=== PATIENT | female | born 1975 | race Caucasian/White ===

== ENCOUNTER 2022-02-02 11:15 | Outpatient (REF) | payer BC, SELFPAY ==
--- NOTE | ~2022-02-02 | US_ITS ---
EXAMINATION: US RETROPERITONEAL LIMITED (RENAL ONLY) CLINICAL INFORMATION: Low back pain. COMPARISON: None TECHNIQUE: Grayscale and color imaging of the kidneys FINDINGS: RIGHT KIDNEY: 11.8 x 4.8 x 5.1 cm (SAG x AP x TRV). The kidney is normal in size, contour, and echogenicity. Renal cortical thickness is normal. There is moderate right hydronephrosis. The visualized right ureter is dilated. No focal parenchymal lesions. Limited imaging of the bladder demonstrate a 6 mm right distal ureteral or UVJ stone. LEFT KIDNEY: 10.7 x 5.4 x 5.2 cm (SAG x AP x TRV). The kidney is normal in size, contour, and echogenicity. Renal cortical thickness is normal. No calculi or focal parenchymal lesions. No hydronephrosis. There are gallstones. US/US renal BI IMPRESSION: Moderate right hydronephrosis and ureteral dilatation from a 6 mm right distal ureteral or UVJ stone. Normal left kidney. Gallstones.
== END 2022-02-02 11:16 | disposition home or self-care (01) ==
LOC: HO.HMGCX 11:15
PROVIDERS: Visit Provider Internal Medicine
DX: R31.9 Hematuria, unspecified (principal); M54.50 Low back pain, unspecified; Z87.442 Personal history of urinary calculi
CPT/HCPCS: 76775

== ENCOUNTER 2022-03-08 14:22 | Outpatient (REF) | payer BC, SELFPAY ==
--- NOTE | ~2022-03-08 | US_ITS ---
EXAMINATION: US ABDOMEN LIMITED CLINICAL INFORMATION: Calculus of gallbladder without cholecystitis without obstruction. COMPARISON: US retroperitoneal limited (renal only) 02/02/2022. TECHNIQUE: Real-time imaging of the right upper quadrant abdominal viscera. FINDINGS: PANCREAS: Normal. LIVER: The liver is normal in size. The liver contour is normal. The liver is diffusely echogenic. No focal hepatic lesion. There is no intrahepatic biliary duct dilatation seen. GALLBLADDER: There are multiple mobile echogenic gallstones. The gallbladder is physiologically distended. Gallbladder wall thickening measures 0.64 cm. There is no tenderness in the right upper quadrant. No evidence of pericholecystic fluid. COMMON BILE DUCT: Normal in caliber measuring 0.4 cm in diameter. RIGHT KIDNEY: Normal. No hydronephrosis. No renal calculi or focal parenchymal lesions. The kidney measures 11.6 cm in maximum dimension. FREE FLUID: None. US/US abdomen limited IMPRESSION: Cholelithiasis with mild gallbladder wall thickening without tenderness. Mild hepatic steatosis without focal lesion.
== END 2022-03-08 14:23 | disposition home or self-care (01) ==
LOC: HO.HMGCX 14:22
PROVIDERS: PCP Internal Medicine; Visit Provider Internal Medicine
DX: K80.20 Calculus of gallbladder without cholecystitis without obstruction (principal)
CPT/HCPCS: 76705

== ENCOUNTER → 2022-03-31 13:34 | Outpatient (BNVA) | payer BC, SELFPAY | PROVIDERS: PCP Internal Medicine; Referring Provider Internal Medicine; Visit Provider Surgery | DX: Z13.89 Encounter for screening for other disorder (principal) ==

== ENCOUNTER 2022-04-20 06:01 | Day surgery (SDC) | payer BC, SELFPAY ==
[2022-04-14 14:33] VITALS: BMI 25.3
--- NOTE | 2022-04-19 09:33 | P.CONAN_ITS ---
Documented by User: Thelma Flores NP 04/19/22 09:34 HPI - Anesthesia Eval Consult details Narrative: 46yo F for Cholecystectomy Laparoscopic,poss open PMFSH Active Problems Active Problems: All Active Problems (Updated 03/31/22 @ 14:20 by Pabliot Allison MD) Biliary colic (Acute) Gallstones (Acute) Hx of migraine with aura (Acute) Hx of renal calculi (Acute) Past Medical History Medical History Gallstones Hx of migraine with aura Hx of renal calculi Family History Family History Mother Breast cancer, Onset Age: 65 Maternal Grandmother Diabetes mellitus Surgical History Surgical History No pertinent past surgical history Social History Social History Alcohol intake: current Alcohol intake frequency: a few times a month Alcohol type: wine Patient Tobacco Use Status: Never used Tobacco Use of substances other than those prescribed or required for medical reasons: No Are you DNR?: No Advance Directives: No Advance Directives Information Provided: Yes Meds Allergies Allergy/AdvReac Type Severity Reaction Status Date / Time No Known Allergies Allergy Unverified 03/31/22 13:44 Home Medications Medication Instructions Recorded Confirmed Last Taken Type levonorgestrel 20.1 mcg/24 hrs (6 INTRAUTERINE 02/02/22 03/31/22 Unknown History yrs) 52 mg intrauterine device (Liletta) Exam Exam Date and Time: April 19, 2022 0933 Height,Weight and Vital Signs: Height 5 ft 4.5 in Weight 68.039 kg Assessment and Plan Assessment Anesthesia Assessment: Chart Reviewed Documented by User: Rachele Horowitz MD 04/20/22 08:06 [facility] Past Medical History Medical History Gallstones Hx of migraine with aura Hx of renal calculi Family History Family History Mother Breast cancer, Onset Age: 65 Maternal Grandmother Diabetes mellitus Surgical History Surgical History No pertinent past surgical history History of Problems with Anesthesia: No Social History Social History Alcohol intake: current Alcohol intake frequency: a few times a month Alcohol type: wine Patient Tobacco Use Status: Never used Tobacco Use of substances other than those prescribed or required for medical reasons: No Are you DNR?: No Advance Directives: No Advance Directives Information Provided: Yes Meds Allergies Allergy/AdvReac Type Severity Reaction Status Date / Time No Known Allergies Allergy Unverified 03/31/22 13:44 Home Medications Medication Instructions Recorded Confirmed Last Taken Type levonorgestrel 20.1 mcg/24 hrs (6 INTRAUTERINE 02/02/22 03/31/22 Unknown History yrs) 52 mg intrauterine device (Liletta) Exam Airway Mallampati Class: II TM Dist: >3cm Neck ROM: Full Loose/Missing/Broken Teeth: No Heart: RRR Lungs: CTA Assessment and Plan Assessment Anesthesia Assessment: Anesthesia Plan Discussed Final Anesthetic Review History of Problems with Anesthesia: No NPO: Yes ASA Class: I Final Preanesthetic Review: Meds/Allgs Chart Reviewed, Consent Obtained/Reviewed and Anes Risks/Benef Reviewed Patient Risk: Low Procedure Risk: Intermediate Anesthetic Plan Anesthetic Plan: GA Disposition: Standard PACU
[2022-04-20] VITALS (9 sets, daily range): BP systolic 101–125; BP diastolic 55–72; PULSE 54–80; RESP 15–20; TEMP 36.1–36.9; O2SAT 98–100
[2022-04-20] MEDS: Acetaminophen 325 MG TABLET 650 MG PO (06:21)
[2022-04-20] MEDS: Lactated Ringers 1,000 ML 100 ML IVCONT (06:33)
[2022-04-20 06:34] LABS: UPreg QC Valid YES; Urine Pregnancy NEGATIVE (NEGATIVE)
--- NOTE | 2022-04-20 07:35 | MHC.SHP ---
Pre-Procedural Eval Section A Date of Service: 04/20/22 The patient is an INPATIENT: No Changes since office visit: Yes Patient answered all questions; No Cold of Flu in the past 2 weeks, No New Medical Problems and No Changes in Medication The History & Physical has been completed within 30 days and I have reviewed it.: Yes Section B Chief Complaint: calculus of bile duct and gallbladder Allergies: Allergies Allergy/AdvReac Type Severity Reaction Status Date / Time No Known Allergies Allergy Unverified 03/31/22 13:44 Plan Diagnosis/Plan: Unchanged I have reviewed the history and physical and performed a pertinent physical examination on my patient. No changes have occurred unless specified.
--- NOTE | 2022-04-20 08:44 | W.PM.OPN ---
Operative Note Operative Note Date of Service: 04/20/22 Narrative: Preoperative diagnosis: Biliary colic, gallstones Postoperative diagnosis: Same Procedure: Laparoscopic cholecystectomy Surgeon: Pablito Allison MD Meter/Relay Craftsman: no physician Anesthesia: General endotracheal Indications for procedure: 46-year-old female patient presenting with intermittent episodes of abdominal pain in the right upper quadrant. Workup revealed gallstones within the gallbladder. Patient presents today for laparoscopic cholecystectomy. Operative findings: Evidence of prior episodes of acute cholecystitis with adhesions to the gallbladder. A single large gallstone noted at the base of the gallbladder. Specimen: gallbladder Estimated blood loss: Less than 1 mL Complications: None Procedure details: Patient was brought to the OR and placed in a supine position. After administering general anesthesia the patient's abdomen was prepped with ChloraPrep and draped in a sterile fashion. Local anesthesia consisting of 0.25% Sensorcaine without epinephrine was infiltrated in a periumbilical region. A 5 mm incision was made above the umbilicus in a transverse fashion. The Veress needle was then inserted while elevating abdominal cavity with towel clips. After positive drop test the abdomen was insufflated to a pressure of 15 mm of mercury. The Veress needle was then removed and a 5 mm trocar inserted. The camera was inserted in the abdomen explored. A 12 mm trocar was then placed in the epigastrium. Two 5 mm trocars placed in the right upper quadrant by the cashier assistant. The patient was placed in reverse Trendelenburg positioning and rotated to the left. The gallbladder was grasped with the fundus and retracted cephalad by the cashier assistant. The infundibulum was then grasped and retracted away from the liver bed, also by the cashier assistant. The Dolphin dissected was then used by the surgeon to dissect the peritoneum off the infundibulum to reveal the junction with the cystic duct. Cystic artery was noted slightly medial and posterior to the cystic duct. After obtaining a critical view the cystic duct was doubly clipped and divided. The cystic artery was then doubly clipped and divided. The gallbladder was then dissected off the liver bed using electrocautery with an L hook. Hemostasis was assured all times using the electrocautery. When the gallbladder is completely dissected off the liver bed was placed in an Endo-Catch bag and brought out through the epigastric incision. The gallbladder was sent to pathology for further examination. The abdomen was then re-examined. The liver bed was irrigated and suctioned dry. No bleeding or bile leak could be identified. CO2 was then evacuated and all trocars removed. Fascia was closed at the epigastric incision using a [id number] 0 Polysorb suture. Skin was closed in all incisions using a subcuticular 4 0 Polysorb suture by both the surgeon and cashier assistant. Sterile dressings consisting of Steri-Strips, 2 x 2 gauze, and Tegaderm were then applied. The patient tolerated the procedure well. Sponge instrument and needle counts reported as correct. The patient was transferred to PACU in stable condition.
[2022-04-20] MEDS: ondansetron HCL 4 MG/2 ML VIAL IVPUSH (08:54)
[2022-04-20] MEDS: fentaNYL citrate/PF 100 MCG/2 ML VIAL 50 MCG IVPUSH (08:56)
[2022-04-20] MEDS: oxyCODONE HCl Immed Release 5 MG TABLET PO (09:33)
== END 2022-04-20 10:24 | disposition home or self-care (01) ==
PROVIDERS: Nurse Practitioner; PCP Internal Medicine; Visit Provider Surgery
PROC: 0FT44ZZ Resection of Gallbladder, Percutaneous Endoscopic Approach (ICD-10-PCS; CPT 47562; principal; 2022-04-20 07:30)
DX: K80.10 Calculus of gallbladder with chronic cholecystitis without obstruction (principal); K82.8 Other specified diseases of gallbladder; Z87.442 Personal history of urinary calculi
CPT/HCPCS: 47562; 81025; 88304; J1100; J2250; J2405; J3010

== ENCOUNTER → 2022-04-28 10:06 | Outpatient (BNVA) | payer BC, SELFPAY | PROVIDERS: PCP Internal Medicine; Referring Provider Internal Medicine; Visit Provider Surgery | DX: Z13.89 Encounter for screening for other disorder (principal) ==

== ENCOUNTER 2023-04-11 07:00 | Outpatient (REF) | payer BC, SELFPAY ==
[2023-04-11 11:12] LABS: MANUAL DIFF FLAG NO
[2023-04-11 11:33] LABS: Basophils Absolute Auto 0.1 X10*3/uL (0.0-0.2); Basophils Percent Auto 0.8 % (0-2); Eosinophils Absolute Auto 0.2 X10*3/uL (0.0-0.4); Eosinophils Percent Auto 2.8 % (0-4); Hematocrit 41.8 % (37.0-47.0); Hemoglobin 13.8 g/dl (12.0-16.0); Imm Gran Abs Auto 0.01 X10*3/uL (0.00-0.03); Imm Gran Pct Auto 0.2 % (0.0-0.4); Lymphocytes Absolute Auto 2.2 X10*3/uL (1.2-4.9); Lymphocytes Percent Auto 36.7 % (20-40); Mean Corpuscular Hemoglobin 29.7 pg (27.0-33.0); Mean Corpuscular Volume 89.9 fL (80.0-98.0); Mean Platelet Volume 9.9 fL (9.4-12.3); Monocytes Absolute Auto 0.5 X10*3/uL (0.1-1.2); Monocytes Percent Auto 7.9 % (2-11); Neutrophils Absolute Auto 3.1 x10*3/uL (2.0-8.3); Neutrophils Percent Auto 51.6 % (45-73); Platelet Count 274 X10*3/uL (160-400); Red Blood Count 4.65 X10*6/uL (4.20-5.50); Red Cell Distribution Width 12.8 % (11.0-16.0); White Blood Count 6.1 X10*3/uL (4.8-10.8)
[2023-04-11 12:11] LABS: Alanine Aminotransferase 18 U/L (0-31); Anion Gap 9 (12-20); Aspartate Amino Transferase 16 U/L (5-31); Blood Urea Nitrogen 12 mg/dL (9-16); Calcium 9.2 mg/dL (8.4-10.2); Carbon Dioxide 25 mmol/L (22-29); Chloride 108 mmol/L (96-108); Cholesterol 205 mg/dL; Estimated Glomerular Filt Rate > 60; Glucose Fasting 100 mg/dL (60-99); HDL Cholesterol 55 mg/dL; LDL Cholesterol Calculated 132 mg/dl; Sodium 138 mmol/L (135-145); Triglycerides 91 mg/dL
[2023-04-11 12:21] LABS: Folate 11.8 ng/mL (> or = 4.0); TSH reflex Free T4 2.12 uIU/mL (0.32-4.0); Vitamin B12 369 pg/mL (200-900); Vitamin D 25-OH Total 17.8 ng/mL (>30)
== END 2023-04-11 07:01 | disposition home or self-care (01) ==
LOC: HO.HMGCLDS 07:00
PROVIDERS: PCP Internal Medicine; Visit Provider Internal Medicine
DX: Z00.01 Encounter for general adult medical examination with abnormal findings (principal); R53.83 Other fatigue
CPT/HCPCS: 36415; 80048; 80061; 82306; 82607; 82746; 84443; 84450; 84460; 85025

== ENCOUNTER 2024-04-11 14:00 | Outpatient (AMB) | payer BC, SELFPAY ==
--- NOTE | 2024-04-11 14:04 | MHC.PC.OV ---
Vital Signs 04/11/24 14:08 Height 5 ft 4 in Weight 186 lb BMI 31.9 BP 124/72 Blood Pressure Location Lt brachial Position Sitting Pulse 77 Pulse Source Pulse Oximeter Pulse Oximetry (%) 97 Oxygen Delivery Method Room Air Intake Visit Reasons: Annual PE Intake Note: Pt is here today for her PE: last mammogram 05/23/23, papsmear 05/13/22 and cologuard 11/28/23 Allergies No Known Allergies Allergy (Unverified 04/11/24 14:32) Medication List - Last Reconciled 04/11/24 by Mary Fragoso MD levonorgestrel (Liletta) intrauterine Tobacco use date assessed: 04/11/24 Dental Screening Dental Screen Date: 04/11/24 Did you have a dental visit in the last 12 months?: Yes Did you have a dental problem in the last 6 months where you did not have access to dental care?: No Was dental information given to patient?: Patient has dentist HPI Annual PE HPI Details 48-year-old lady here today for her physical exam. Has no significant past medical history, currently followed by OBGYN for her routine Pap and pelvic exam, and is also on Liletta for control, inserted in 2017. last mammogram was done on 05/23/23, and papsmear done on 05/13/22 done by Erin Capps NP . She had a negative cologuard 11/28/23. Up-to-date with her vaccines [facility] Medical History Hyperlipidemia Impaired fasting glucose Fatigue Gallstones Hx of migraine with aura Hx of renal calculi Surgical History S/P laparoscopic cholecystectomy (04/20/22) No pertinent past surgical history Family History Mother Breast cancer, Onset Age: 65 Maternal Grandmother Diabetes mellitus Social History Housing: House Alcohol intake: current Alcohol intake frequency: a few times a month Alcohol type: wine Patient Tobacco Use Status: Never used Tobacco e-Cigarette/Vaping Use: Never Used service: No Current occupational status: employed Cognitive needs: No Hearing needs: No Vision needs: Yes Female Reproductive History Menstrual control method: progestin IUCD Questionnaire PHQ-9 Over the last 2 weeks, how often have you been bothered by any of the following problems? 1. Little interest or pleasure in doing things: not at all 2. Feeling down, depressed, or hopeless: not at all 3. Trouble falling or staying asleep, or sleeping too much: not at all 4. Feeling tired or having little energy: not at all 5. Poor appetite or overeating: not at all 6. Feeling bad about yourself - or that you are a failure or have let yourself or your family down: not at all 7. Trouble concentrating on things, such as reading the newspaper or watching television: not at all 8. Moving or speaking so slowly that other people could have noticed. Or the opposite - being so fidgety or restless that you have been moving around a lot more than usual: not at all 9. Thoughts that you would be better off or of hurting yourself in some way: not at all Total score: 0 Depression Screening Interpretation: Negative Depression Screening Done: Yes 37148 - PHQ-9 Billing: Yes Source: Developed by Drs. Manpreet Pickard, Pippa Salinas, Arnold Man and colleagues, with an educational rm from [employer]. Thrive Questionnaire Date Thrive assessed: 04/11/24 I am a: Patient What is your living situation today?: I have a steady place to live Within the past 12 months, did the food you bought not last and you didn't have the money to get more?: Never true Within the past 12 months, did you worry whether your food would run out before you got money to buy more?: Never true Do you have trouble paying for medicines?: No Do you have trouble getting transportation to medical appointments?: No Do you have trouble paying your heating and electricity bill?: No Do you have trouble taking care of your child, family member or friend?: No Do you have trouble with day-to-day activities such as bathing, preparing meals, shopping, managing finances, etc.?: No Are you currently unemployed and looking for a job?: No Are you interested in more education?: No THRIVE Score: 0 AUDIT C Alcohol Use Questionnaire (AUDIT-C) 1. How often do you have a drink containing alcohol?: Monthly or less 2. How many drinks containing alcohol do you have on a typical day when you are drinking?: 1 or 2 3. How often do you have six or more drinks on one occasion?: Never Total Score: 1 DIONY-7 AMB Questionnaire DIONY-7 Date DIONY - 7 assessed: 04/11/24 Feeling nervous, anxious, or on edge: 0 = Not at all Not being able to stop or control worryin = Not at all Worrying too much about different things: 0 = Not at all Trouble relaxin = Not at all Being so restless that it is hard to sit still: 0 = Not at all Becoming easily annoyed or irritable: 0 = Not at all Feeling afraid as if something awful might happen: 0 = Not at all Total DIONY-7 score (0-4 normal; 5-9 mild; 10-14 moderate; 15-21 severe): 0 Source: Developed by Drs. Manpreet Pickard, Pippa Salinas, Arnold Man and colleagues, with an educational rm from [employer]. DIONY-7 Assessment Billing DIONY-7 Assessment Tool: DIONY-7 Assessment 72704 Review of Systems Const Denies chills, Denies fever(s), Denies headache(s) and Denies poor appetite Eyes Details: Goes to vision works in [place] Denies change in vision ENT Denies dizziness and Denies headache(s) Card Denies chest pain, Denies rapid heart rate, Denies palpitations and Denies slow heart rate Resp Denies chest congestion, Denies cough, Denies pain on inspiration and Denies wheezing GI Denies bloating, Denies change in stool character, Denies constipation, Denies diarrhea, Denies vomiting and Denies hematemesis Reports no additional complaints Musc Denies back pain, Denies arthralgias, Denies joint swelling and Denies numbness Skin/Breast Denies change in pigmentation, Denies erythema and Denies rash Neuro Denies dizziness, Denies headache(s) and Denies numbness Psych Denies anxiety and Denies depression Endo Denies palpitations Anthony/Lymph Denies easy bleeding, Denies easy bruising and Denies lymphadenopathy Aller/Immun Denies wheezing Physical exam (Primary Care) Vital Signs: Last Vital Signs Pulse 77 04/11/24 14:08 BP 124/72 04/11/24 14:08 Pulse Ox 97 04/11/24 14:08 Oxygen Delivery Method Room Air 04/11/24 14:08 BMI result Body Mass Index 31.9 Tobacco/Smoking Status: Tobacco use Status Tobacco use date assessed 04/11/24 04/11/24 14:07 Patient Tobacco Use Status Never used Tobacco 04/11/24 14:07 e-Cigarette/Vaping Use Never Used 04/11/24 14:07 PHQ-9: PHQ-9 Score PHQ-9: Total score 0 04/11/24 14:11 Depression Screening Interpretation: Negative Thrive Assessment: Date of Thrive Assessment Date Thrive assessed 04/11/24 04/11/24 14:11 Advance Care Planning discussion: Completed/Scanned Date of discussion: 04/11/24 Who was present: Patient Forms completed: Health Care Proxy Time spent: 16-45 minutes Actual minutes spent: 16 Const General: comfortable, no acute distress and alert Orientation/consciousness: patient oriented x3 HENMT Head: Yes normocephalic Ears: external ears normal, TM's normal bilaterally and EAC's normal General nose exam: Normal external nose present Face and sinus: Yes face symmetric Mouth: Normal oral and palatal mucosa present, oropharynx normal and moist mucous membranes Eyes General: appearance normal, both eyes and all related structures Neck Neck: Yes full ROM, Yes no lymphadenopathy and Yes supple Chest Chest palpation & inspection: normal inspection of the chest Breast/axilla palpation: normal palpation of the breasts Resp Auscultation: clear to auscultation bilaterally Cardio Other: S1, S2 present regular rate and rhythm GI Inspection: Yes normal to inspection Palpation (GI): Soft to palpation and no masses General: Yes no CVA tenderness Back/Spine/Pelvis Back: no CVA tenderness Skin General skin exam: no rashes or lesions noted Neuro General: patient oriented x3, gait normal, tone normal, moves all extremities and no focal motor deficits Cognition (Neuro): normal cognition Extrem General: Yes full ROM, Yes no joint enlargement, Yes no clubbing, cyanosis or edema, Yes no calf tenderness and Yes normal gait Psych Appearance: grossly normal and well kempt Mental Status: mental status grossly normal Speech and movement: Normal speech and movement present Affect: normal affect Attitude: cooperative Thought process: Normal thought process present Thought content: Normal thought content present Assessment and Plan Assessment & Plan (1) Annual visit for general adult medical examination with abnormal findings: Code(s): Z00.01 - Encounter for general adult medical examination with abnormal findings Plan: Will check appropriate labs. Continue regular dental visit every 6 months and regular eye exams, at least every 2 years, goes to [employer] in [place]. Take adequate calcium in diet and vitamin-D 3 at 2000 IU per cap once a day, in addition to weight-bearing exercises to help maintain good muscle tone and weight control. Instructed to do self-breast exam, and continue with yearly mammogram, goes to [facility] for her routine Pap and pelvic exam, currently up-to-date. Up-to-date with all her vaccinations, and her colon cancer screening, had a negative Cologuard testing done on 11/19 (2) Fatigue: Code(s): R53.83 - Other fatigue Qualifiers: Fatigue type: unspecified Qualified Code(s): R53.83 - Other fatigue Plan: Will check vitamin-D level (3) Hyperlipidemia: Code(s): E78.5 - Hyperlipidemia, unspecified Qualifiers: Hyperlipidemia type: pure hypercholesterolemia Qualified Code(s): E78.00 - Pure hypercholesterolemia, unspecified Plan: Will check fasting lipid panel, reinforced importance of following her low-cholesterol diet and getting regular exercise (4) Impaired fasting glucose: Code(s): R73.01 - Impaired fasting glucose Plan: Your fasting blood sugar last year was elevated. Impaired glucose metabolism increases your risk for developing diabetes mellitus type 2, as well as heart attack and stroke later on. Lifestyle changes at just weight loss, healthy eating habits, and regular exercise are important, and can prevent the progression to diabetes Orders: Orders Alanine Aminotransferase Today E78.5 - Hyperlipidemia, unspecified, R53.83 - Other fatigue, R73.01 - Impaired fasting glucose, Z00.01 - Encounter for general adult medical examination with abnormal findings Vitamin D 25-OH Total Today E78.5 - Hyperlipidemia, unspecified, R53.83 - Other fatigue, R73.01 - Impaired fasting glucose, Z00.01 - Encounter for general adult medical examination with abnormal findings Lipid Panel Today E78.5 - Hyperlipidemia, unspecified, R53.83 - Other fatigue, R73.01 - Impaired fasting glucose, Z00.01 - Encounter for general adult medical examination with abnormal findings Basic Metabolic Panel Fasting Today E78.5 - Hyperlipidemia, unspecified, R53.83 - Other fatigue, R73.01 - Impaired fasting glucose, Z00.01 - Encounter for general adult medical examination with abnormal findings Aspartate Amino Transferase Today E78.5 - Hyperlipidemia, unspecified, R53.83 - Other fatigue, R73.01 - Impaired fasting glucose, Z00.01 - Encounter for general adult medical examination with abnormal findings Coding Level of Care Code Est Pt Prev Care 40-64y(95023) Diagnoses Annual visit for general adult medical examination with abnormal findings Z00.01 Fatigue, unspecified type R53.83 Fatigue type: unspecified Pure hypercholesterolemia E78.00 Hyperlipidemia type: pure hypercholesterolemia Impaired fasting glucose R73.01 Additional Codes DIONY-7 Assessment Billing - DIONY-7 Assessment Tool: DIONY-7 Assessment 58397 ([id number]) Vital Signs *Quality* - Advance Care Planning discussion: Completed/Scanned ([id number]) Vital Signs *Quality* - Time spent: 16-45 minutes ([id number])
[2024-04-11 14:08] VITALS: BP 124/72; PULSE 77; O2SAT 97; BMI 31.9
== END 2024-04-11 15:00 | disposition home or self-care (01) ==
PROVIDERS: Visit Provider Internal Medicine
DX: Z00.00 Encounter for general adult medical examination without abnormal findings (principal); R53.83 Other fatigue; E78.00 Pure hypercholesterolemia, unspecified; R73.01 Impaired fasting glucose
CPT/HCPCS: 1123F; 99396; 99497

== ENCOUNTER 2024-08-19 07:15 | Outpatient (REF) | payer BC, SELFPAY ==
[2024-08-19 10:53] LABS: Alanine Aminotransferase 30 U/L (0-31); Anion Gap 12 (12-20); Aspartate Amino Transferase 23 U/L (5-31); Blood Urea Nitrogen 11 mg/dL (9-16); Calcium 9.4 mg/dL (8.4-10.2); Carbon Dioxide 23 mmol/L (22-29); Chloride 108 mmol/L (96-108); Cholesterol 177 mg/dL (<200); Estimated Glomerular Filt Rate > 60; Glucose Fasting 95 mg/dL (60-99); HDL Cholesterol 48 mg/dL (>40); LDL Cholesterol Calculated 106 mg/dL (<100); Potassium 3.8 mmol/L (3.3-5.1); Sodium 139 mmol/L (135-145); Triglycerides 119 mg/dL (<150)
[2024-08-19 11:12] LABS: Vitamin D 25-OH Total 31.6 ng/mL (>30)
== END 2024-08-19 07:16 | disposition home or self-care (01) ==
LOC: HO.HMGCLDS 07:15
PROVIDERS: PCP Internal Medicine; Visit Provider Internal Medicine
DX: Z00.01 Encounter for general adult medical examination with abnormal findings (principal); R73.01 Impaired fasting glucose; E78.5 Hyperlipidemia, unspecified; R53.83 Other fatigue
CPT/HCPCS: 36415; 80048; 80061; 82306; 84450; 84460

== ENCOUNTER 2024-11-11 15:20 | Outpatient (AMB) | payer BC, SELFPAY ==
--- NOTE | 2024-11-11 15:26 | AM.OFFWIN_ITS ---
Intake Vital Signs 11/11/24 15:28 Height 5 ft 4 in Weight 187 lb BMI 32.1 BP 130/88 Blood Pressure Location Lt brachial Position Sitting Pulse 84 Pulse Source Pulse Oximeter Temp 97.0 F Temp Source Temporal Artery Scan Pulse Oximetry (%) 99 Oxygen Delivery Method Room Air Intake Visit Reasons: EP pain on RT shoulder for several weeks Intake Note: Pt presents to the office today for c/o right shoulder pain that radiates down her arm x1 month on and off. Pt states today she experienced numbness and tingling in her left hand. Pt denies any injury to her shoulder. Patient Tobacco Use Status: Never used Tobacco Allergies No Known Allergies Allergy (Unverified 11/11/24 15:29) HPI EP pain on RT shoulder for several weeks HPI Details This note is constructed using voice recognition software. While every effort has been made to ensure accuracy, police booking officer errors may have been included. The patient is a 49 year old female who presents to the clinic today with intermittent right shoulder pain for the past several weeks. She denies any specific injury to this now or in the past. Does note that the pain feels rather sharp in nature, intermittent, worse when she is sitting. She has had some intermittent numbness and tingling into her fingers as a result of this. She tried ibuprofen this morning, did not seem to help, only took 200 mg. She took a 2nd 200 mg dose and that seemed to help alleviate the pain for several hours, but it did return. [facility] Medical History Hyperlipidemia Impaired fasting glucose Fatigue Gallstones Hx of migraine with aura Hx of renal calculi Surgical History S/P laparoscopic cholecystectomy (04/20/22) No pertinent past surgical history Family History Mother Breast cancer, Onset Age: 65 Maternal Grandmother Diabetes mellitus Social History Housing: House Alcohol intake: current Alcohol intake frequency: a few times a month Alcohol type: wine Patient Tobacco Use Status: Never used Tobacco e-Cigarette/Vaping Use: Never Used service: No Current occupational status: employed Cognitive needs: No Hearing needs: No Vision needs: Yes Review of Systems Const All systems reviewed & are unremarkable except as noted in HPI and below Physical Exam Vital Signs: Last Vital Signs Temp 97.0 F 11/11/24 15:28 Pulse 84 11/11/24 15:28 BP 130/88 11/11/24 15:28 Pulse Ox 99 11/11/24 15:28 Oxygen Delivery Method Room Air 11/11/24 15:28 BMI result Body Mass Index 32.1 Const General: cooperative, healthy appearing, comfortable, no acute distress and well developed Orientation/consciousness: patient oriented x3 Limitations: no limitations Resp Effort & Inspection: normal respiratory effort and able to speak in complete sentences Back/Spine/Pelvis Other: Right paraspinal muscle bulking, with palpable not. Full range of motion of shoulder, elbow, neck. No erythema, ecchymosis, edema. Skin General skin exam: no rashes or lesions noted Neuro General: patient oriented x3 Extrem General: Yes normal to inspection Assessment & Plan Assessment & Plan (1) Muscle spasm: Code(s): M62.838 - Other muscle spasm Plan: Advised use of NSAIDs, heat/ice, topical muscle rubs, and muscle relaxers prescribed to patient at time of visit. HEP provided. Consider physical therapy want to ongoing or worsening symptoms. Advised patient to follow up with PCP as needed. Plan See above for full details and plan. Medications: New cyclobenzaprine 1 to 2 orally 3 times a day PRN; 10 tabs 0RF muscle spasm Coding Level of Care Code Est Pt Level 3 (37191) Diagnoses Muscle spasm M62.838
[2024-11-11 15:28] VITALS: BP 130/88; PULSE 84; TEMP 36.1; O2SAT 99; BMI 32.1
== END 2024-11-11 15:43 | disposition home or self-care (01) ==
PROVIDERS: PCP Internal Medicine; Visit Provider Registered Nurse
DX: M62.838 Other muscle spasm (principal)

== ENCOUNTER → 2024-11-11 15:20 | Outpatient (BNVA) | payer BC, SELFPAY | PROVIDERS: PCP Internal Medicine; Visit Provider Registered Nurse ==

== ENCOUNTER 2024-11-13 18:03 | Emergency (ER) | payer BC, SELFPAY ==
--- NOTE | ~2024-11-13 | XR_ITS ---
EXAMINATION: XR CHEST CLINICAL INFORMATION: pain COMPARISON: None available. TECHNIQUE: 2 views of the chest were obtained. FINDINGS: No significant abnormality is noted involving the heart, lungs, mediastinum, bony thorax or soft tissues. XR/XR chest 2V IMPRESSION: Unremarkable examination. Electronically signed by: Cy Cheung DO 11/13/2024 09:20 PM [facility] [place]
--- NOTE | ~2024-11-13 | MR_ITS ---
EXAMINATION: MR CERVICAL SPINE WITHOUT CONTRAST CLINICAL INFORMATION: Radiculopathy, weakness COMPARISON: None available. TECHNIQUE: MRI of the cervical spine was obtained using routine sequences without contrast. FINDINGS: Motion artifact is present. The imaged posterior fossa is unremarkable. Straightening of the normal cervical arthrosis. No listhesis. No acute bone marrow abnormality. The vertebral body heights are preserved. Multilevel disc desiccation with severe disc height loss at C5-6. Type II endplate changes at C5-6. The visualized spinal cord is normal in caliber. No abnormal cord signal. C2-3: No significant spinal canal or neural foraminal narrowing. C3-4: Mild endplate spurring. No significant spinal canal or neural foraminal narrowing. C4-5: Mild endplate spurring. No significant spinal canal or neural foraminal narrowing. C5-6: Disc osteophyte complex and bilateral uncovertebral hypertrophy. Moderate left greater than right neural foraminal narrowing. No significant spinal canal stenosis. C6-7: Disc osteophyte complex with superimposed right foraminal disc extrusion migrating slightly inferiorly. No significant spinal canal stenosis. Severe right neural foraminal narrowing. C7-T1: No significant spinal canal or neural foraminal narrowing. The paravertebral soft tissues are unremarkable. The imaged lung apices are clear. MR/MR cervical spine wo con IMPRESSION: Within the limitations of the study, -Multilevel cervical spondylosis without significant spinal canal narrowing. At C6-C7, there is a right foraminal disc extrusion resulting in severe right neural foraminal narrowing. At C5-C6, there is moderate left greater than right neural foraminal narrowing. Electronically signed by: Cresencio Novak MD 11/13/2024 09:08 PM [facility]
--- NOTE | ~2024-11-13 | XR_ITS ---
EXAMINATION: XR THORACIC SPINE CLINICAL INFORMATION: pain COMPARISON: None available. TECHNIQUE: 3 views of the thoracic spine were obtained. FINDINGS: There is no fracture or bone destruction seen and the vertebral alignment is normal. There is no disc space narrowing. There is no abnormality of the paraspinal soft tissues. XR/XR thoracic spine 2V IMPRESSION: Unremarkable examination. Electronically signed by: Cy Cheung DO 11/13/2024 09:20 PM [facility]
[2024-11-13 18:07] VITALS: BP 149/85; PULSE 72; RESP 16; TEMP 37; O2SAT 98; BMI 31.8
--- NOTE | 2024-11-13 18:10 | ECG_ITS ---
Test Reason : BACK PAIN Blood Pressure : / mmHG Vent. Rate : 072 BPM Atrial Rate : 072 BPM P-R Int : 160 ms QRS Dur : 080 ms QT Int : 404 ms P-R-T Axes : 007 041 009 degrees QTc Int : 442 ms Normal sinus rhythm Normal ECG No previous ECGs available Referred By: Gabino Momin Electronically Signed By:TONO JONES
--- NOTE | 2024-11-13 18:10 | ED_ITS ---
HPI - General Adult General Chief complaint: General Medical Stated complaint: rt shoulder pain/was in UC pain won't go away Time Seen by Provider: 11/13/24 19:53 Source: patient Limitations: no limitations History of Present Illness ED Provider: Analisa Thomas PA-C HPI narrative: 49-year-old female with a history of hyperlipidemia, migraine, kidney stones, presents with upper back and neck discomfort that has been going on for a month. Patient's symptoms are progressing, she is now having radiation of pain into the right upper extremity. Associated paresthesia and subtle weakness of the right upper extremity. Patient is having decreased rehabilitation case coordinator strength. Related Data Home Medications ?Medication ?Instructions ?Recorded ?Confirmed levonorgestrel 20.4 mcg/24 hr (up intrauterine 02/02/22 11/15/24 to 8 yrs) 52 mg intrauterine device (Liletta) Previous Rx's ?Medication ?Instructions ?Recorded meloxicam 15 mg tablet 15 mg PO DAILY PRN pain, moderate 11/15/24 #30 tabs methocarbamol 750 mg tablet 1,500 mg (2 x 750 mg) PO Q8H PRN 11/15/24 pain, moderate #40 tabs tramadol 50 mg tablet 50 mg PO BID PRN pain, moderate 11/18/24 #20 tabs Allergies Allergy/AdvReac Type Severity Reaction Status Date / Time No Known Allergies Allergy Verified 11/15/24 09:18 Review of Systems 2 Review of Systems: Yes all other systems are reviewed and are negative Constitutional: Constitutional: Denies fatigue and Denies fever(s) ENT: Reports neck pain Cardiovascular: Cardiovascular: Denies chest pain and Denies dyspnea Respiratory: Respiratory: Denies dyspnea Musculoskeletal: Musculoskeletal: Reports muscle weakness, Reports neck pain, Denies numbness, Reports radiating pain into limb and Reports tingling Neurologic: Denies numbness and Reports tingling Endocrine: Endocrine: Denies fatigue PMFSH Past Medical History Attestation statement: The following information was validated with the patient. Medical History (Updated 11/15/24 @ 10:36 by Mary Fragoso MD) Cervical disc disorder at C6-C7 level with radiculopathy Hyperlipidemia Impaired fasting glucose Gallstones Hx of migraine with aura Hx of renal calculi Surgical History (Updated 11/15/24 @ 10:36 by Mary Fragoso MD) S/P laparoscopic cholecystectomy (04/20/22) Family History Family History Mother Breast cancer, Onset Age: 65 Maternal Grandmother Diabetes mellitus Social History Social History Housing: House Alcohol intake: current Alcohol intake frequency: a few times a month Alcohol type: wine Patient Tobacco Use Status: Never used Tobacco e-Cigarette/Vaping Use: Never Used Advance Directives Date on File: 04/11/24 service: No Current occupational status: employed Cognitive needs: No Hearing needs: No Vision needs: Yes Physical Exam ED Vital Signs: Vital Signs - 24 hr 11/13/24 18:07 11/13/24 21:19 Temperature 98.6 F 98.3 F Pulse Rate 72 60 Respiratory Rate 16 18 Blood Pressure 149/85 H 132/90 H Pulse Oximetry 98 98 Oxygen Delivery Method Room Air Room Air BMI result Body Mass Index 31.8 Const Other: Alert, appears uncomfortable Orientation/consciousness: patient oriented x3 Neck Other: Full range of motion, pain elicited with range of motion Resp Effort & Inspection: normal respiratory effort Cardio Other: Normal peripheral perfusion Skin Other: Warm dry no rash Neuro General: patient oriented x3, no focal motor deficits and CN's II-XI intact bilaterally Extrem Other: Overall strength 5/5 bilateral upper extremities with resistance, however subtly reduced rehabilitation case coordinator strength of the right hand Psych Other: Calm cough Course Course Course Narrative: RME, this is a rapid medical exam performed by Mega Momin please refer to primary provider for complete H&P- 49-year-old female presents for evaluation of right upper back pain. She has had mild pain on and off for a month, 2 days ago her pain worsened and she was seen at urgent care, prescribed muscle relaxers without any improvement in her symptoms. She reports occasional tingling in the right arm. Denies any nausea, vomiting, chest pain. Plan for cardiac workup. The patient is tender on exam in the right thoracic paraspinous region Medications Administered Discontinued Medications Generic Name Dose Route Start Last Admin Trade Name Freq PRN Reason Stop Dose Admin Dexamethasone Sodium Phosphate 10 mg 11/13/24 21:42 11/13/24 21:49 Dexamethasone Sod Phosphate 10 Mg/Ml Vial IVPUSH 11/13/24 21:43 10 mg ONCE ONE Administration Diazepam 5 mg 11/13/24 20:19 11/13/24 20:34 Diazepam 10 Mg/2 Ml Cartridge IVPUSH 11/13/24 20:20 5 mg STAT STA Administration Ketorolac Tromethamine 15 mg 11/13/24 20:19 11/13/24 20:34 Ketorolac Tromethamine 15 Mg/Ml Vial IVPUSH 11/13/24 20:20 15 mg ONCE ONE Administration Medical Decision Making Medical Decision Making MDM Narrative: 49-year-old female with a history of hyperlipidemia, migraine, kidney stones, presents with upper back and neck discomfort that has been going on for a month. Patient's symptoms are progressing, she is now having radiation of pain into the right upper extremity. Associated paresthesia and subtle weakness of the right upper extremity. Patient is having decreased rehabilitation case coordinator strength. No relevant chronic issues History: Per patient I have considered the following differential diagnoses: Cervical radiculopathy, cord compression , cervical spine fracture Plan: Patient having worsening radicular symptoms now with new weakness. We will obtain an MRI. Giving muscle relaxant, and anti-inflammatory. Screening labs and x-rays were ordered from triage. I have independently reviewed the following tests: Labs: Steatosis, not anemic, no electrolyte abnormality X-ray T-spine: FINDINGS: There is no fracture or bone destruction seen and the vertebral alignment is normal. There is no disc space narrowing. There is no abnormality of the paraspinal soft tissues. XR/XR thoracic spine 2V IMPRESSION: Unremarkable examination. Electronically signed by: Cy Cheung DO 11/13/2024 09:20 PM EST RP X-ray:RDER #: [id number] XR/XR chest 2V IMPRESSION: Unremarkable examination. Electronically signed by: Cy Cheung DO 11/13/2024 09:20 PM EST RP MRI cervical spine: MR/MR cervical spine wo con IMPRESSION: Within the limitations of the study, -Multilevel cervical spondylosis without significant spinal canal narrowing. At C6-C7, there is a right foraminal disc extrusion resulting in severe right neural foraminal narrowing. At C5-C6, there is moderate left greater than right neural foraminal narrowing. Electronically signed by: Cresencio Novak MD 11/13/2024 09:08 PM [facility] Lab Data 11/13/24 18:18 11/13/24 18:18 Labs: Lab Results 11/13/24 Range/Units 18:18 WBC 7.5 (4.8-10.8) X10*3/uL RBC 4.64 (4.20-5.50) X10*6/uL Hgb 13.6 (12.0-16.0) g/dl Hct 40.5 (37.0-47.0) % MCV 87.3 (80.0-98.0) fL MCH 29.3 (27.0-33.0) pg MCHC 33.6 (31.0-35.0) g/dl RDW 13.2 (11.0-16.0) % Plt Count 274 (160-400) X10*3/uL MPV 9.0 L (9.4-12.3) fL Immature Gran % (Auto) 0.3 (0.0-0.4) % Neut % (Auto) 50.9 (45-73) % Lymph % (Auto) 36.8 (20-40) % [place] % (Auto) 8.6 (2-11) % Eos % (Auto) 2.9 (0-4) % Baso % (Auto) 0.5 (0-2) % Lymph # (Auto) 2.8 (1.2-4.9) X10*3/uL [place] # (Auto) 0.7 (0.1-1.2) X10*3/uL Eos # (Auto) 0.2 (0.0-0.4) X10*3/uL Baso # (Auto) 0.0 (0.0-0.2) X10*3/uL Abs Immat Gran (auto) 0.02 (0.00-0.03) X10*3/uL Absolute Neuts (auto) 3.8 (2.0-8.3) x10*3/uL Absolute Nucleated RBC 0.000 (0.0-0.012) X10*3/uL Nucleated RBC % (auto) 0.0 (0.0-0.2) /100WBC PT 11.3 (10.9-12.4) SEC INR 1.0 (0.9-1.1) Sodium 138 (135-145) mmol/L Potassium 3.6 (3.3-5.1) mmol/L Chloride 108 (96-108) mmol/L Carbon Dioxide 25 (22-29) mmol/L Anion Gap 9 L (12-20) BUN 12 (9-16) mg/dL Creatinine 0.86 (0.5-1.4) mg/dL Estim Creat Clear Calc 81.1 Estimated GFR > 60 Random Glucose 123 H (60-115) mg/dL Calcium 9.6 (8.4-10.2) mg/dL Total Bilirubin 0.2 (0.0-1.0) mg/dL AST 32 H (5-31) U/L ALT 60 H (0-31) U/L Alkaline Phosphatase 55 (39-117) U/L Troponin I High Sens < 2.7 (<3.5-17.0) ng/L Total Protein 7.5 (6.5-8.0) g/dL Albumin 4.3 (3.5-5.0) g/dL Lipase 32 (8-78) U/L Discharge Plan Discharge Clinical Impression: Cervical radiculopathy Patient Disposition: Home, Self-Care Instructions: Cervical Radiculopathy (ED) Additional Instructions: You were found to have degenerative changes within your cervical spine, with nerve impingement at C6-C7 and C5-C6. You need to follow up with primary care, the next likely course is to initiate physical therapy. Use the methocarbamol as needed for pain, this is a muscle relaxant. To note this medication will cause drowsiness, do not drive or operate machinery while taking the medication. Use the meloxicam as directed, this is an anti-inflammatory. Prescriptions: No Action tramadol 50 mg tablet 50 mg PO BID PRN (Reason: pain, moderate) Qty: 20 0RF Liletta 20.1 mcg/24 hrs (6 yrs) 52 mg intrauterine device intrauterine meloxicam 15 mg tablet 15 mg PO DAILY PRN (Reason: pain, moderate) Qty: 30 0RF methocarbamol 750 mg tablet 1,500 mg PO Q8H PRN (Reason: pain, moderate) Qty: 40 0RF Stand Alone Forms: Work/School Release Interventions: ED Discharge Assessment Last Done: 11/13/24 22:04 Discharge Date/Time: 11/13/24 22:18 Print Language: Georgian
[2024-11-13 18:23] LABS: MANUAL DIFF FLAG NO
[2024-11-13 18:26] LABS: Basophils Percent Auto 0.5 % (0-2); Eosinophils Absolute Auto 0.2 X10*3/uL (0.0-0.4); Eosinophils Percent Auto 2.9 % (0-4); Hematocrit 40.5 % (37.0-47.0); Hemoglobin 13.6 g/dl (12.0-16.0); Imm Gran Abs Auto 0.02 X10*3/uL (0.00-0.03); Imm Gran Pct Auto 0.3 % (0.0-0.4); Lymphocytes Absolute Auto 2.8 X10*3/uL (1.2-4.9); Lymphocytes Percent Auto 36.8 % (20-40); Mean Corpuscular HGB Conc 33.6 g/dl (31.0-35.0); Mean Corpuscular Hemoglobin 29.3 pg (27.0-33.0); Mean Corpuscular Volume 87.3 fL (80.0-98.0); Monocytes Absolute Auto 0.7 X10*3/uL (0.1-1.2); Monocytes Percent Auto 8.6 % (2-11); Neutrophils Absolute Auto 3.8 x10*3/uL (2.0-8.3); Neutrophils Percent Auto 50.9 % (45-73); Platelet Count 274 X10*3/uL (160-400); Red Blood Count 4.64 X10*6/uL (4.20-5.50); Red Cell Distribution Width 13.2 % (11.0-16.0); White Blood Count 7.5 X10*3/uL (4.8-10.8)
[2024-11-13 18:33] LABS: Prothrombin Time 11.3 SEC (10.9-12.4)
[2024-11-13 18:47] LABS: Albumin Level 4.3 g/dL (3.5-5.0); Alkaline Phosphatase 55 U/L (39-117); Anion Gap 9 (12-20); Aspartate Amino Transferase 32 U/L (5-31); Bilirubin Total 0.2 mg/dL (0.0-1.0); Blood Urea Nitrogen 12 mg/dL (9-16); Calcium 9.6 mg/dL (8.4-10.2); Carbon Dioxide 25 mmol/L (22-29); Chloride 108 mmol/L (96-108); Creatinine Clr Calc Pharmacy 81.1; Estimated Glomerular Filt Rate > 60; Glucose Random 123 mg/dL (60-115); Lipase 32 U/L (8-78); Potassium 3.6 mmol/L (3.3-5.1); Sodium 138 mmol/L (135-145); Total Protein 7.5 g/dL (6.5-8.0)
[2024-11-13 18:53] LABS: Troponin-I High Sensitivity < 2.7 ng/L (<3.5-17.0)
[2024-11-13 19:03] LABS: Alanine Aminotransferase 60 U/L (0-31)
[2024-11-13] MEDS: Ketorolac Tromethamine 15 MG/ML VIAL IVPUSH (20:34)
[2024-11-13] MEDS: diazePAM 10 MG/2 ML CARTRIDGE 5 MG IVPUSH (20:34)
[2024-11-13 21:19] VITALS: BP 132/90; PULSE 60; RESP 18; TEMP 36.8; O2SAT 98
[2024-11-13] MEDS: dexAMETHasone sod phosphate 10 MG/ML VIAL IVPUSH (21:49)
[2024-11-13 22:04] VITALS: BP 132/90; PULSE 60; RESP 18; TEMP 36.8; O2SAT 98
== END 2024-11-13 22:18 | disposition home or self-care (01) ==
PROVIDERS: Physician Assistant; Emergency Provider Emergency Medicine Emergency Medical Services; PCP Internal Medicine
DX: M54.12 Radiculopathy, cervical region (principal); M54.50 Low back pain, unspecified; M25.511 Pain in right shoulder; M54.6 Pain in thoracic spine; R07.89 Other chest pain; Z79.899 Other long term (current) drug therapy; Z51.81 Encounter for therapeutic drug level monitoring
CPT/HCPCS: 36415; 71046; 72070; 72141; 80053; 83690; 84484; 85025; 85610; 93005; 96374; 96375; 99284; 99285; J1100; J1885; J3360

== ENCOUNTER → 2024-11-13 18:10 | Outpatient (BNV) | payer BC, SELFPAY | PROVIDERS: Emergency Provider Emergency Medicine Emergency Medical Services; PCP Internal Medicine; Visit Provider Internal Medicine | DX: M54.6 Pain in thoracic spine (principal) | CPT/HCPCS: 93010 ==

== ENCOUNTER 2024-11-15 08:37 | Outpatient (AMB) | payer BC, SELFPAY ==
--- NOTE | 2024-11-15 08:38 | A.OFFPC_ITS ---
Intake Visit Reasons: I phone [phone] degenerative disk lumbar spine Allergies No Known Allergies Allergy (Verified 11/15/24 09:18) Medication List - Last Reconciled 11/15/24 by Mary Fragoso MD levonorgestrel (Liletta) intrauterine meloxicam 15 mg PO DAILY methocarbamol 1,500 mg (2 x 750 mg) PO Q8H PRN Tobacco use date assessed: 11/15/24 Dental Screening Dental Screen Date: 11/15/24 Did you have a dental visit in the last 12 months?: Yes Did you have a dental problem in the last 6 months where you did not have access to dental care?: No Was dental information given to patient?: Patient has dentist HPI I phone [phone] degenerative disk lumbar spine HPI Details - telehealth visit made with 49-year-old female complaining of posterior neck pain with radiation down right arm accompanied by numbness and tingling going all the way up to index and 3rd finger on the right. This has been present now for the last month and progressively getting worse. - Symptoms intensified on a Monday [place] ng, persisting despite initial Advil administration, prompting urgent care and subsequent emergency room visit. - An MRI done at the ER revealed multile flash cervical spondylosis without significant spinal canal narrowing. At C6-C7, there is a right foraminal disc extrusion resulting in severe right neural foraminal narrowing. At C5-C6, there is moderate left greater than right neural foraminal narrowing. Was prescribed meloxicam 50 mg once a day and methocarbamol 750 mg, taken every 8 hours which affords temporary pain relief. - Currently, reports considerable discom fort when lying down, resulting in sleeping upright; no associated weakness of family [employer] teacher or loss of strength - No gait disturbances or bowel/bladder function loss. - No inciting trauma presently identifie d; mention of distant neck injury during teenage years potentially irrelevant. 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 Patient uncertain whether she can go back to work in November 2024 [facility] Medical History (Updated 11/15/24 @ 10:36 by Mary Fragoso MD) Cervical disc disorder at C6-C7 level with radiculopathy Hyperlipidemia Impaired fasting glucose Gallstones Hx of migraine with aura Hx of renal calculi Surgical History (Updated 11/15/24 @ 10:36 by Mary Fragoso MD) S/P laparoscopic cholecystectomy (04/20/22) Family History Mother Breast cancer, Onset Age: 65 Maternal Grandmother Diabetes mellitus Social History Housing: House Alcohol intake: current Alcohol intake frequency: a few times a month Alcohol type: wine Patient Tobacco Use Status: Never used Tobacco e-Cigarette/Vaping Use: Never Used Advance Directives Date on File: 04/11/24 service: No Current occupational status: employed Cognitive needs: No Hearing needs: No Vision needs: Yes Questionnaire Thrive Questionnaire Date Thrive assessed: 04/11/24 DIONY-7 AMB Questionnaire DIONY-7 Date DIONY - 7 assessed: 04/11/24 Source: Developed by Drs. Manpreet Pickard, Pippa Salinas, Arnold Man and colleagues, with an educational rm from [employer]. Review of Systems Const All systems reviewed & are unremarkable except as noted in HPI and below Eyes Denies change in vision ENT Denies dysphagia and Denies dizziness Card Reports no additional complaints Resp Reports no additional complaints GI Denies dysphagia Reports no additional complaints Musc Reports no additional complaints Neuro Denies dizziness Physical exam (Primary Care) Tobacco/Smoking Status: Tobacco use Status Tobacco use date assessed 11/15/24 11/15/24 08:39 Patient Tobacco Use Status Never used Tobacco 11/15/24 08:39 e-Cigarette/Vaping Use Never Used 11/15/24 08:39 Thrive Assessment: Date of Thrive Assessment Date Thrive assessed 04/11/24 11/15/24 08:39 Telehealth Telehealth [facility] Location of provider rendering services: practice address Location of patient: address on file Patient Identification confirmed using: Name, : Yes Telehealth method: video Patient verbally consented to treatment: Yes Patient verbally consented to billing insurance company: Yes Patient informed of any privacy concerns related to visit: Yes Minutes spent on Phone/Video with Pt.: 20 Results Reviewed Results Reviewed: MRI cervical spine showed Multilevel cervical spondylosis without significant spinal canal narrowing. At C6-C7, there is a right foraminal disc extrusion resulting in severe right neural foraminal narrowing. At C5-C6, there is moderate left greater than right neural foraminal narrowing. Coding Level of Care Code Tele Est Pt Level 4 (94277) Diagnoses Cervical disc disorder at C6-C7 level with radiculopathy M50.123 Assessment & Plan Assessment & Plan (1) Cervical disc disorder at C6-C7 level with radiculopathy: Code(s): M50.123 - Cervical disc disorder at C6-C7 level with radiculopathy Category: Medical Plan: Continue meloxicam and methocarbamol, refill sent. Advised to take methocarbamol only as needed painful muscle spasms. And take meloxicam always with a meal. Neurosurgery consult obtained for further evaluation management. Orders: Referrals Neurosurgery Referral M50.123 - Cervical disc disorder at C6-C7 level with radiculopathy Medications: Changed From meloxicam 15 mg PO DAILY 10 tabs 0RF To meloxicam 15 mg PO DAILY PRN 30 tabs 0RF pain, moderate Refilled methocarbamol 1,500 mg (2 x 750 mg) PO Q8H PRN 40 tabs 0RF pain, moderate
== END 2024-11-15 12:02 | disposition home or self-care (01) ==
LOC: HO.HMCC 08:37
PROVIDERS: PCP Internal Medicine; Visit Provider Internal Medicine
DX: M50.123 Cervical disc disorder at C6-C7 level with radiculopathy (principal)

== ENCOUNTER → 2024-12-19 15:27 | Outpatient (BNVA) | payer BC, SELFPAY | PROVIDERS: PCP Nurse Practitioner Family; Visit Provider Nurse Practitioner Family | DX: Z00.01 Encounter for general adult medical examination with abnormal findings (principal); Z23 Encounter for immunization; K76.0 Fatty (change of) liver, not elsewhere classified; R06.83 Snoring; G47.10 Hypersomnia, unspecified; R00.2 Palpitations; D22.9 Melanocytic nevi, unspecified; M50.123 Cervical disc disorder at C6-C7 level with radiculopathy; R73.01 Impaired fasting glucose; Z86.69 Personal history of other diseases of the nervous system and sense organs; Z87.448 Personal history of other diseases of urinary system; Z80.3 Family history of malignant neoplasm of breast; Z82.49 Family history of ischemic heart disease and other diseases of the circulatory system | CPT/HCPCS: 83036; 90471; 90472; 90656; 90715; 96127 ==

== ENCOUNTER → 2025-01-10 13:04 | Outpatient (REF) | payer BC, SELFPAY | LOC: HO.CARD 13:04 | PROVIDERS: Visit Provider Nurse Practitioner Family | DX: R00.2 Palpitations (principal); Z82.49 Family history of ischemic heart disease and other diseases of the circulatory system | CPT/HCPCS: 93242 ==

== ENCOUNTER → 2025-01-10 13:08 | Outpatient (BNV) | payer BC, SELFPAY | PROVIDERS: Visit Provider Internal Medicine | DX: I47.10 Supraventricular tachycardia, unspecified (principal) | CPT/HCPCS: 93244 ==

== ENCOUNTER 2025-09-11 10:19 | Outpatient (AMB) | payer BC, SELFPAY ==
--- NOTE | 2025-09-11 10:26 | MHC.PC.OV ---
Vital Signs 09/11/25 10:29 Height 5 ft 4 in Weight 185 lb 4 oz BMI 31.8 BP 98/68 Blood Pressure Location Rt brachial Position Sitting Respiration 12 Pulse 78 Pulse Source Pulse Oximeter Temp 97.7 F Temp Source Oral Pulse Oximetry (%) 98 Oxygen Delivery Method Room Air Intake Visit Reasons: Swelling under right armpit Intake Note: Patient c/o swelling under the right arm and painful x2 days. 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 Required: No Allergies No Known Allergies Allergy (Verified 09/11/25 10:26) Tobacco use date assessed: 09/11/25 Dental Screening Dental Screen Date: 09/11/25 Did you have a dental visit in the last 12 months?: Yes Did you have a dental problem in the last 6 months where you did not have access to dental care?: No Was dental information given to patient?: Patient has dentist HPI HPI Comments History of Present Illness Details 49 y/o F with kidney stones, migraine w/ aura, family hx of breast ca (Mom), IFG, Cervical disc disorder at C6-C7 level with radiculopathy, HLD, fatty liver ([place] 2021), hx of R hydronephrosis s/p lap lexie 2021 Family hx: Dad with AFib, Sister w/ Afib, Mom w/ breast ca age 72 Social: , 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 Axillary swelling and breast pain on R: - Right axillary swelling for 1 month, mild soreness. - Swelling reduced but persists w/o intervention Denies fever, chills, trauma, eliciting events, drainage, skin changes. + fhx breast ca in Mom Mammo reviewed. Review of Systems - Breast: Reports right axillary soreness and swelling, more towards the breast. Denies physical breast changes. - General: Denies fever, chills. Discussion Notes I discussed with the patient the significance of the right axillary swelling and soreness, emphasizing the findings of dense breast tissue as noted in the recent mammogram. I recommended proceeding with a diagnostic mammogram and ultrasound to further evaluate the right breast and axillary region. We explored the locations where she could have the tests performed, such as [facility] or possibly at a relevant center due to her preferences. The importance of follow-up with imaging results was highlighted, and I instructed her to notify me via a patient portal message once the imaging is completed so I may review the results promptly. We also discussed her option for receiving a flu shot today. Patient was given time to ask questions. All questions were answered to their satisfaction. Assessment and Plan 1. Axillary swelling, breast pain, lump R - Recommend diagnostic mammogram and ultrasound. - Plan follow-up post-imaging. Send me message once scheduled so i can get these results; contact me if any delays. - Continue regular monitoring. - Advise breast self-examinations. Patient Instructions - Schedule a diagnostic mammogram and ultrasound for the right breast and axillary area. - Notify via patient portal once imaging is completed. - Continue regular breast self-examinations. Consent Patient consented to proceed with a diagnostic mammogram and ultrasound. I explained the procedure, risks, and benefits thoroughly, emphasizing the potential to identify and rule out any serious conditions. Alternatives, such as waiting and monitoring, were considered but not pursued due to the patient's preference to identify the cause of swelling. The patient understood and agreed with the plan. Patient was informed and verbally consented to the use of an ambient scribe for clinic note documentation during this visit. [facility] Medical History Cervical disc disorder at C6-C7 level with radiculopathy Hyperlipidemia Impaired fasting glucose Gallstones Hx of migraine with aura Hx of renal calculi Surgical History S/P laparoscopic cholecystectomy (04/20/22) Family History Mother Breast cancer, Onset Age: 65 Maternal Grandmother Diabetes mellitus Social History (Updated 12/19/24 @ 15:30 by Binh Hayes MA) Household Members: Family Both parents involved: No Caregiver staying overnight: No Housing: House Are you a primary day care home mother to a significant other at home: No Do you presently have visiting nurse or other home services: No 75 years or older and lives alone: No Alcohol intake: current Alcohol intake frequency: a few times a month Alcohol type: wine Patient Tobacco Use Status: Never used Tobacco e-Cigarette/Vaping Use: Never Used Advance Directives Date on File: 04/11/24 service: No Current occupational status: employed Cognitive needs: No Hearing needs: No Vision needs: Yes Questionnaire Thrive Questionnaire Date Thrive assessed: 09/11/25 I am a: Patient What is your living situation today?: I have a steady place to live Within the past 12 months, did the food you bought not last and you didn't have the money to get more?: Never true Within the past 12 months, did you worry whether your food would run out before you got money to buy more?: Never true Do you have trouble paying for medicines?: No Do you have trouble getting transportation to medical appointments?: No Do you have trouble paying your heating and electricity bill?: No Do you have trouble taking care of your child, family member or friend?: No Do you have trouble with day-to-day activities such as bathing, preparing meals, shopping, managing finances, etc.?: No Are you currently unemployed and looking for a job?: No Are you interested in more education?: No Please select the resources that you would like help with: None Currently or been in a relationship where the following occur: No concerns reported THRIVE Score: 0 DIONY-7 AMB Questionnaire DIONY-7 Date DIONY - 7 assessed: 12/19/24 Source: Developed by Drs. Manpreet Pickard, Pippa Salinas, Arnold Man and colleagues, with an educational rm from [employer]. Physical exam (Primary Care) Vital Signs: Last Vital Signs Temp 97.7 F 09/11/25 10:29 Pulse 78 09/11/25 10:29 Resp 12 09/11/25 10:29 BP 98/68 09/11/25 10:29 Pulse Ox 98 09/11/25 10:29 Oxygen Delivery Method Room Air 09/11/25 10:29 BMI result Body Mass Index 31.8 Tobacco/Smoking Status: Tobacco use Status Tobacco use date assessed 09/11/25 09/11/25 10:28 Patient Tobacco Use Status Never used Tobacco 09/11/25 10:28 e-Cigarette/Vaping Use Never Used 09/11/25 10:28 Thrive Assessment: Date of Thrive Assessment Date Thrive assessed 09/11/25 09/11/25 10:28 Currently or been in a relationship where the following occur: No concerns reported Chest Breast/axilla inspection: normal inspection of the breasts and abnormal inspection of the axilla (right fullness in the axilla and tail of montes in supine position) Breast/axilla palpation: normal palpation of the breasts (on Left ), normal palpation of the axillae, no axillary lymphadenopathy and abnormal palpation of the breast Chest/axillae images:  1. pain and palpable soft mobile lump Office Procedures Flu Questionnaire Does the patient have a severe egg allergy?: No Does the patient have severe life threatening allergies?: No Does the patient have a fever or illness today?: No Has the patient ever had Guillain-Harper Syndrome?: No Has the patient ever had any past reaction to a flu shot?: No Immunizations Fluarix [id number] (PF) 45 mcg (15 mcg x 3)/0.5 mL IM syringe Performing Provider: MICHAELA Larsen [place] [facility] [place] [facility] Administered by: Binh Kaur MA on 09/11/25 10:57 Dose Route Admin Location Dispensed Lot Number Expiration Date [facility] [employer] 0.5 mL IM Left Deltoid 0.5 mL [id number] 05/26/26 16494-054-28 [employer] VIS Given Date VIS Provided VIS Publication Date 09/11/25 Single Vaccine 24 Eligibility Eligibility Date Funding Source Not [facility] Eligible 09/11/25 Private Coding Level of Care Code Est Pt Level 3 (64881) Complex EM visit Add On G2211 Diagnoses Right axillary fullness R22.31 Breast pain, left N64.4 Family history of breast cancer Z80.3 Influenza vaccination administered at current visit Z23 Assessment & Plan Assessment & Plan (1) Right axillary fullness: Code(s): R22.31 - Localized swelling, mass and lump, right upper limb Category: Medical (2) Breast pain, left: Code(s): N64.4 - Mastodynia Category: Medical (3) Family history of breast cancer: Comment: Mom Code(s): Z80.3 - Family history of malignant neoplasm of breast Category: Medical (4) Influenza vaccination administered at current visit: Onset Date: ~09/11/25 Code(s): Z23 - Encounter for immunization Category: Medical Plan , Orders: Orders US breast RT limited Today N64.4 - Mastodynia, R22.31 - Localized swelling, mass and lump, right upper limb, Z80.3 - Family history of malignant neoplasm of breast Influenza [id number] Immunization Today Z23 - Encounter for immunization MM diagnostic mammo unilat RT Today N64.4 - Mastodynia, R22.31 - Localized swelling, mass and lump, right upper limb, Z80.3 - Family history of malignant neoplasm of breast
[2025-09-11 10:29] VITALS: BP 98/68; PULSE 78; RESP 12; TEMP 36.5; O2SAT 98; BMI 31.8
== END 2025-09-11 10:59 | disposition home or self-care (01) ==
LOC: HO.HMCFM 10:20
PROVIDERS: PCP Nurse Practitioner Family; Visit Provider Nurse Practitioner Family
DX: R22.31 Localized swelling, mass and lump, right upper limb (principal); N64.4 Mastodynia; Z80.3 Family history of malignant neoplasm of breast; Z23 Encounter for immunization

== ENCOUNTER → 2025-09-11 10:19 | Outpatient (BNVA) | payer BC, SELFPAY | PROVIDERS: PCP Nurse Practitioner Family; Visit Provider Nurse Practitioner Family | DX: N64.4 Mastodynia (principal); R22.31 Localized swelling, mass and lump, right upper limb; Z23 Encounter for immunization; Z80.3 Family history of malignant neoplasm of breast | CPT/HCPCS: 90471; 90656 ==